=== PATIENT | male | born 1940 | race Caucasian/White ===

== ENCOUNTER 2017-03-15 06:54 | Day surgery (SDC) | payer OTHER ==
[2017-03-15] MEDS ORDERED: TETRACAINE 0.5% OPHTH 1 DOSE AFFEYE ONE ×3 (07:16→09:44)
[2017-03-15] MEDS ORDERED: NS 500 ML IV 500 ML IV ONE (07:18)
[2017-03-15] MEDS ORDERED: VIGAMOX 0.5% OPHTH 1 DOSE AFFEYE ONE ×5 (07:20→09:56)
[2017-03-15] MEDS ORDERED: PROLENSA OPHTH 1 DOSE AFFEYE ONE (07:27)
[2017-03-15] MEDS ORDERED: ALPHAGAN-P OPHTH 1 DOSE AFFEYE ONE (07:28)
[2017-03-15] MEDS ORDERED: MYDRIACIL OPHTH 1 DOSE AFFEYE ONE ×4 (07:30→07:40)
[2017-03-15] MEDS ORDERED: CYCLOGYL 1% OPHTH 1 DOSE OP ONE ×4 (07:30→07:40)
[2017-03-15] MEDS ORDERED: AK-DILATE 2.5% OPHTH 1 DOSE OP ONE ×4 (07:30→07:40)
[2017-03-15] MEDS ORDERED: BETADINE OPHTH SOLN 5% EACHEYE ONE (09:38)
[2017-03-15] MEDS ORDERED: DIPRIVAN VIAL ONE (09:39)
[2017-03-15] MEDS ORDERED: ADRENALINE CHL INJ IJ ONE (09:44)
[2017-03-15] MEDS ORDERED: BSS OPHTH (PLAIN) 500 ML with VANCOMYCIN HCL 500 MG VIAL 25 MG, ADRENALINE CHL INJ 1 MG IR ONE ×3 (09:44)
[2017-03-15] MEDS ORDERED: DUOVISC IO ONE (09:47)
[2017-03-15] MEDS ORDERED: XYLOCAINE-MPF 1% IJ ONE (09:47)
[2017-03-15 10:17] VITALS: BP 142/77
== END 2017-03-15 10:20 | disposition home or self-care (01) ==
LOC: SURG1 06:54
PROVIDERS: ATTEND Ophthalmology
PROC: 08DJ3ZZ Extraction of Right Lens, Percutaneous Approach (ICD-10-PCS; principal; 2017-03-15 15:00)
PROC: 08RJ3JZ Replacement of Right Lens with Synthetic Substitute, Percutaneous Approach (ICD-10-PCS; principal; 2017-03-15 15:00)
DX: H25.11 Age-related nuclear cataract, right eye (principal); H25.011 Cortical age-related cataract, right eye
CPT/HCPCS: 99100; A4217; J0170; J3370; J3490

== ENCOUNTER 2017-03-29 09:46 | Day surgery (SDC) | payer OTHER ==
[2017-03-29] MEDS ORDERED: TETRACAINE 0.5% OPHTH 1 DOSE AFFEYE ONE ×2 (10:05→13:11)
[2017-03-29] MEDS ORDERED: VIGAMOX 0.5% OPHTH 1 DOSE AFFEYE ONE ×5 (10:08→13:33)
[2017-03-29] MEDS ORDERED: NS 500 ML IV 500 ML IV ONE (10:08)
[2017-03-29] MEDS ORDERED: DIPRIVAN VIAL ONE (10:20)
[2017-03-29] MEDS ORDERED: PROLENSA OPHTH 1 DOSE AFFEYE ONE (10:21)
[2017-03-29] MEDS ORDERED: ALPHAGAN-P OPHTH 1 DOSE AFFEYE ONE (10:24)
[2017-03-29] MEDS ORDERED: AK-DILATE 2.5% OPHTH 1 DOSE OP ONE ×6 (10:27→10:37)
[2017-03-29] MEDS ORDERED: CYCLOGYL 1% OPHTH 1 DOSE OP ONE ×6 (10:27→10:37)
[2017-03-29] MEDS ORDERED: MYDRIACIL OPHTH 1 DOSE AFFEYE ONE ×6 (10:27→10:37)
[2017-03-29] MEDS ORDERED: BETADINE OPHTH SOLN 5% EACHEYE ONE (13:11)
[2017-03-29] MEDS ORDERED: XYLOCAINE-MPF 1% IJ ONE ×2 (13:15→13:25)
[2017-03-29] MEDS ORDERED: DUOVISC IO ONE ×2 (13:15→13:25)
[2017-03-29] MEDS ORDERED: ADRENALINE CHL INJ IJ ONE ×2 (13:15→13:25)
[2017-03-29] MEDS ORDERED: BSS OPHTH (PLAIN) 500 ML with VANCOMYCIN HCL 500 MG VIAL 25 MG, ADRENALINE CHL INJ 1 MG IR ONE ×6 (13:16)
[2017-03-29 13:49] VITALS: BP 186/89
== END 2017-03-29 13:49 | disposition home or self-care (01) ==
LOC: SURG1 09:46
PROVIDERS: ATTEND Ophthalmology
PROC: 08RK3JZ Replacement of Left Lens with Synthetic Substitute, Percutaneous Approach (ICD-10-PCS; principal; 2017-03-29 16:30)
PROC: 08DK3ZZ Extraction of Left Lens, Percutaneous Approach (ICD-10-PCS; principal; 2017-03-29 16:30)
DX: H25.12 Age-related nuclear cataract, left eye (principal); H25.012 Cortical age-related cataract, left eye
CPT/HCPCS: 99100; A4217; J0170; J3370; J3490